=== PATIENT | female | born 2000 | race Hispanic/Latino ===

== ENCOUNTER 2022-01-19 09:51 | Day surgery (SDC) | payer OTHER ==
[~2022-01-19] VITALS: Ht 152.4 cm; Wt 60.7 kg
[2022-01-19] VITALS (10 sets, daily range): BP systolic 90–102; BP diastolic 56–67
[~2022-01-19 09:51] MED LIST: ACET-2743 PO; ASCO500C18 PO; CALC-1125 PO; IBUP-2784 PO; MULT-952 PO; VITA1CAP85 PO
[2022-01-19] MEDS ORDERED: LIDOCAINE PF 100MG/5ML (2%) SYRINGE 5ML ONE (11:14)
[2022-01-19] MEDS ORDERED: PROPOFOL 10 MG/ML 20ML VIAL IV ONE ×3 (11:14→11:23)
[2022-01-20] MEDS ORDERED: PROPRANOLOL HCL 1 MG/ML VIAL IVP ONE (09:35)
== END 2022-01-19 12:15 | disposition home or self-care (01) ==
LOC: ENDO 09:51 → DAH 09:51 → ENDO 12:15
PROVIDERS: ATTEND Internal Medicine
DX: R19.4 Change in bowel habit (principal); K29.50 Unspecified chronic gastritis without bleeding; K22.89 Other specified disease of esophagus; K31.89 Other diseases of stomach and duodenum; R10.13 Epigastric pain; R11.0 Nausea; Z79.899 Other long term (current) drug therapy; Z20.822 Contact with and (suspected) exposure to COVID-19
CPT/HCPCS: 43239; 45380; 87635; A4215 ×2; A4221; A4222; A4223; A4606; A4620; A4657; A4663; C9803; J2001; J2704 ×3; J1800